=== PATIENT | male | born 1970 | race Two or more races ===

== ENCOUNTER 2021-01-27 22:41 | Emergency (ER) | payer OTHER ==
[~2021-01-27] VITALS: Ht 170.2 cm; Wt 90.7 kg
--- NOTE | 2021-01-27 23:15 | NUR ---
Dr. Henderson at bedside for MSE.
[2021-01-27] MEDS ORDERED: LIDOCAINE HCL 1% 20 ML VIAL ONE (23:45)
[2021-01-27] MEDS ORDERED: LIDOCAINE HCL 1% 20 ML VIAL IJ ONE (23:45)
[2021-01-28 00:30] LABS: HEMATOCRIT 37.8 % (36.7-47.1); MEAN CORPUSCULAR HEMOGLOBIN 30.7 uug (23.8-33.4); PLATELET COUNT (AUTO) 225 K/uL (152-348)
[2021-01-28 00:53] LABS: BILIRUBIN,DIRECT 0.1 mg/dL (0.0-0.2); BILIRUBIN,TOTAL 0.3 mg/dL (0.2-1.0); TOTAL PROTEIN, SERUM 7.3 g/dL (6.4-8.2)
[2021-01-28 00:55] LABS: THYROID STIMULATING HORMONE 3.49 mIU/mL (0.358-3.740)
[2021-01-28 01:14] LABS: URIC ACID 6.3 mg/dL (3.5-7.2)
[2021-01-28] MEDS ORDERED: methylPREDNISolone ACETATE 40 MG VIAL IM ONE ×2 (01:30→02:15)
[2021-01-28] MEDS ORDERED: methylPREDNISolone ACETATE 40 MG VIAL ONE ×2 (01:40→02:21)
[2021-01-28] MEDS ORDERED: THYR30TA2 PO (01:51)
[2021-01-28] MEDS ORDERED: PRED50TA PO (02:15)
[2021-01-28] MEDS ORDERED: LIDOCAINE HCL 2% 20 ML VIAL ONE (02:24)
--- NOTE | 2021-01-28 02:38 | NUR ---
Patient discharged to home in stable condition. Written and verbal after care instructions given. Patient verbalizes understanding of instructions. Stressed follow up or return to ER for worsening s/s.
[2021-01-28 02:42] VITALS: BP 137/69
== END 2021-01-28 02:44 | disposition home or self-care (01) ==
LOC: ER 22:44
DX: M25.462 Effusion, left knee (principal); M13.0 Polyarthritis, unspecified; E03.9 Hypothyroidism, unspecified; M06.9 Rheumatoid arthritis, unspecified; F17.210 Nicotine dependence, cigarettes, uncomplicated; Z86.19 Personal history of other infectious and parasitic diseases; Z86.39 Personal history of other endocrine, nutritional and metabolic disease
CPT/HCPCS: 20610; 36415 ×2; 80048; 80076; 83986; 84155; 84439; 84443; 84550; 85025; 85610; 85651; 96372; 99284; J1030 ×2; J3490 ×2; A4663

== ENCOUNTER 2021-02-03 02:55 | Emergency (ER) | payer OTHER ==
[~2021-02-03] VITALS: Ht 170.2 cm; Wt 90.7 kg
[~2021-02-03 02:55] MED LIST: PRED50TA PO; THYR30TA2 PO
[2021-02-03] MEDS ORDERED: IBUP-1957 PO (03:28)
[2021-02-03] MEDS ORDERED: PRED20TA PO (03:28)
[2021-02-03] MEDS ORDERED: IBUPROFEN 800 MG TABLET PO ONE (03:30)
[2021-02-03] MEDS ORDERED: HYDROCODONE/APAP 10-325 MG TABLET PO ONE (03:30)
[2021-02-03] MEDS ORDERED: predniSONE 20 MG TABLET PO ONE (03:30)
[2021-02-03] MEDS ORDERED: predniSONE 50 MG TABLET ONE (03:36)
[2021-02-03] MEDS ORDERED: HYDROCODONE/APAP 10-325 MG TABLET ONE (03:36)
[2021-02-03] MEDS ORDERED: predniSONE 10 MG TABLET ONE (03:36)
[2021-02-03] MEDS ORDERED: IBUPROFEN 800 MG TABLET ONE (03:36)
--- NOTE | 2021-02-03 03:50 | NUR ---
Pt given DC instructions and medication info and pt confirmed understanding of aftercare. Pt agreed to follow up with pmd within a few days. Pt ambulated out of dept with steady gait but slight limp, pt using tse properly. VSS, no s/sx of distress present.
[2021-02-03 05:55] VITALS: BP 117/75
== END 2021-02-03 03:50 | disposition home or self-care (01) ==
LOC: ER 02:57
DX: M13.0 Polyarthritis, unspecified (principal); M25.462 Effusion, left knee; F17.210 Nicotine dependence, cigarettes, uncomplicated; B19.20 Unspecified viral hepatitis C without hepatic coma; Z79.891 Long term (current) use of opiate analgesic; M06.9 Rheumatoid arthritis, unspecified
CPT/HCPCS: 99284; 99406; J7512 ×2; A4663

== ENCOUNTER 2021-04-23 19:22 | Emergency (ER) | payer OTHER ==
[~2021-04-23] VITALS: Ht 170.2 cm; Wt 90.7 kg
[~2021-04-23 19:22] MED LIST changes: +IBUP-1957 PO; +PRED20TA PO
[2021-04-23] MEDS ORDERED: ALBUTEROL SULFATE 8 GM HFA.AER.AD IH PRN (20:45)
[2021-04-23] MEDS ORDERED: IBUPROFEN 600 MG TABLET PO ONE (20:45)
[2021-04-23] MEDS ORDERED: predniSONE 20 MG TABLET PO ONE (20:45)
[2021-04-23 20:57] LABS: HEMATOCRIT 37.8 % (36.7-47.1); MEAN CORPUSCULAR HEMOGLOBIN 31.2 uug (23.8-33.4); MEAN CORPUSCULAR VOLUME 89.8 fL (73.0-96.2); PLATELET COUNT (AUTO) 222 K/uL (152-348)
[2021-04-23 21:05] LABS: CREATININE 1.1 mg/dL (0.6-1.3); POTASSIUM 3.8 mmol/L (3.5-5.1)
[2021-04-23 21:18] LABS: BILIRUBIN,DIRECT 0.1 mg/dL (0.0-0.2); BILIRUBIN,TOTAL 0.4 mg/dL (0.2-1.0); TOTAL PROTEIN, SERUM 7.5 g/dL (6.4-8.2)
[2021-04-23] MEDS ORDERED: IBUPROFEN 600 MG TABLET ONE (21:54)
[2021-04-23] MEDS ORDERED: predniSONE 20 MG TABLET ONE (21:55)
[2021-04-24] MEDS ORDERED: METH4TAB3 PO (00:17)
[2021-04-24] MEDS ORDERED: ALBU6.7H9 INH (00:17)
--- NOTE | 2021-04-24 00:29 | NUR ---
IV removed. Catheter intact and site benign. Pressure and 4x4 gauze applied to site. No bleeding noted.
[2021-04-24 00:38] VITALS: BP 130/79
== END 2021-04-24 00:40 | disposition home or self-care (01) ==
LOC: ER 19:24
DX: R07.9 Chest pain, unspecified (principal); J40 Bronchitis, not specified as acute or chronic; Z20.822 Contact with and (suspected) exposure to COVID-19; I10 Essential (primary) hypertension; I45.10 Unspecified right bundle-branch block; F17.210 Nicotine dependence, cigarettes, uncomplicated; G62.9 Polyneuropathy, unspecified; Z86.19 Personal history of other infectious and parasitic diseases; Z82.49 Family history of ischemic heart disease and other diseases of the circulatory system
CPT/HCPCS: 36415 ×2; 71045; 76705; 80048; 80076; 83605; 83880; 84484 ×2; 85025; 87040; 87426; 93005 ×2; 93970; 99285; J7512; 70030-TC; J3535